=== PATIENT | male | born 1980 | race Caucasian/White ===

== ENCOUNTER → 2020-11-25 | Outpatient (CLI) | payer OTHER ==
--- NOTE | 2020-11-25 15:25 | REP ---
INDICATION: DENSITY LT LUNG COMPARISON: None TECHNIQUE: Axial noncontrast images from the thoracic inlet to the upper abdomen with coronal and sagittal reformations. This CT examination was performed using the following dose reduction techniques: Automated exposure control, adjustment of mA and/or kv according to the patient's size, and use of iterative reconstruction technique. FINDINGS: There is a 5 mm calcified nodule along the periphery of the left upper lobe along with calcified mediastinal lymph nodes consistent with prior granulomatous disease. Lung agosto are otherwise well aerated, symmetric and clear. No acute consolidation, suspicious nodule or mass. No effusion. No pneumothorax. Tracheobronchial tree is patent. No acute adenopathy. Mediastinum demonstrates normal thoracic aorta, pulmonary vasculature, and heart/pericardium. Musculoskeletal structures are intact. IMPRESSION: 1. Calcified granuloma and calcified mediastinal lymph nodes consistent with prior granulomatous disease. 2. No acute mediastinal or pleuroparenchymal process appreciated. <Electronically signed by Alex Smith > 11/25/20 0671
== END ==
LOC: M RAD 14:41
PROVIDERS: ATTEND Family Medicine
DX: J84.10 Pulmonary fibrosis, unspecified (principal)